=== PATIENT | male | born 1965 | race Caucasian/White ===

== ENCOUNTER 2021-01-01 18:32 | Emergency (ER) | payer OTHER ==
[~2021-01-01] VITALS: Ht 170.2 cm; Wt 76.2 kg
[2021-01-01 18:32] VITALS: BP 134/74
--- NOTE | 2021-01-01 18:32 | NUR ---
BIBA TO BED 8
--- NOTE | 2021-01-01 18:35 | NUR ---
55 Y/O MALE BIBA FROM HOME C/O NONRADIATING INTERMITTENT CHEST PAIN XTODAY. PER MEDICS, PT C/O 3/10 CHEST PAIN. MEDICS ADMINISTERED 162MG ASPIRIN AND 0.4 MG NITRO SL WITH COMPLETE RELIEF OF PAIN. PT TESTED POSITIVE FOR COVID 12/23. DENIES RELATED SYMPTOMS. PMH:DENIES NKDA
--- NOTE | 2021-01-01 18:43 | NUR ---
Dr. Morgan is evaluating patient at bedside.
--- NOTE | 2021-01-01 19:19 | NUR ---
Report and transfer of care endorsed to ANA Burns.
--- NOTE | 2021-01-01 19:40 | NUR ---
XRAY AT BEDSIDE
--- NOTE | 2021-01-01 19:50 | NUR ---
LAB AT BEDSIDE
[2021-01-01 20:03] LABS: BASOPHILS % (AUTO) 0.5 % (0.0-2.0); EOSINOPHILS % (AUTO) 0.3 % (0.0-4.0); HEMATOCRIT 39.3 % (36-52); HEMOGLOBIN 13.5 g/dL (12.0-18.0); LYMPHOCYTES # (AUTO) 0.9 K/uL (2.0-11.5); LYMPHOCYTES % (AUTO) 30.3 % (20.5-51.1); MEAN CORPUSCULAR HEMOGLOBIN 30 pg (27-31); MEAN CORPUSCULAR HGB CONC 34 g/dL (33-37); MEAN CORPUSCULAR VOLUME 88.4 fL (80-94); MONOCYTES # (AUTO) 0.4 K/uL (0.8-1.0); MONOCYTES % (AUTO) 14.1 % (1.7-9.3); NEUTROPHILS # (AUTO) 1.6 K/uL (1.8-7.7); NEUTROPHILS % (AUTO) 54.8 % (42.2-75.2); PLATELET COUNT (AUTO) 150 K/uL (140-450); RED BLOOD CELL COUNT(AUTO) 4.45 MIL/uL (4.20-6.10); RED CELL DISTRIBUTION WIDTH 12.9 % (11.6-13.7)
[2021-01-01 20:25] LABS: ALBUMIN 3.7 g/dL (3.4-5.0); ANION GAP 11.7 (8-16); CREATININE 0.9 mg/dL (0.6-1.3); POTASSIUM 4.7 mmol/L (3.5-5.1); TOTAL BILIRUBIN 0.7 mg/dL (0.0-1.0)
--- NOTE | 2021-01-01 21:00 | NUR ---
PT. AMBULATED TO BATHROOM WITH EVEN AND STEADY GAIT.
[2021-01-01 22:30] VITALS: BP 112/73
--- NOTE | 2021-01-01 22:30 | NUR ---
Patient discharged with v/s stable. Written and verbal after care instructions given and explained. Patient verbalized understanding. Ambulatory with steady gait. All questions addressed prior to discharge. Advised to follow up with PMD.
== END 2021-01-01 22:30 | disposition home or self-care (01) ==
LOC: MED 18:32
DX: R07.9 Chest pain, unspecified (principal); R11.0 Nausea
CPT/HCPCS: 36415; 71045; 80053; 83880; 84484; 85025; 93005; 99285; Q0092